=== PATIENT | female | born 1965 | race Caucasian/White ===

== ENCOUNTER 2022-10-11 02:29 | Day surgery (SDC) | payer OTHER, SELFPAY ==
[2022-10-04 15:52] VITALS: BMI 19.8
--- NOTE | 2022-10-04 16:02 | PC.NURSE ---
Report to the Outpatient Waiting Room, entrance under the green pavilion located off [facility], at time 1100 on date 10/11/22. Planned Procedure Time: 1300. Time changes happen often and if your time is changed the preop area will call you the afternoon before. - You and your visitor will be asked to self-screen and do not enter if you have any COVID symptoms. - A mask is optional within the hospital at this time. Patients may have clear liquids (water, carbonated beverages, clear teas, apple juice) until 3 hours prior to surgery with a maximum of 20 ounces. - No food from midnight until time of surgery Take the following medications with a SIP of water the morning of surgery: INHALERS, GABAPENTIN, PREDNISONE, PAIN PILL(S) IF NEEDED DO NOT STOP ANY OF YOUR OTHER PRESCRIPTION MEDICATIONS PRIOR TO SURGERY ?EXCEPT THE FOLLOWING Medications to discontinue per physician: VITAMINS/SUPPLEMENTS Date to take last dose: 10/07/[address] STARKEY REGARDING MELOXICAM Please no make-up, nail austrian, hairspray, perfume, deodorant, or body powder the day of surgery. No jewelry (including any body piercings) or valuables the day of surgery, leave them at home. Please take a shower or bath the night before, or the morning of, surgery with an antibacterial soap. Wear comfortable, loose fitting clothing. - Jewelry must be removed prior to entering the operating room. Rings and piercings that are not removed may be cut off. - The hospital will not accept responsibility for valuables. - Please leave all valuables, including medications, at home the day of surgery. If you are going home after surgery, a licensed cross country truck driver must drive you home. - NO public transportation without another adult if you receive anesthesia. - We recommend that an adult stay with you for 24 hours following discharge. - We also recommend that you do not drive, make important decision, drink alcoholic beverages, or take any drugs that were not prescribed by your health care provider for at least 24 hours after your discharge time. Follow any additional instructions given to you from your surgeon. If you or anyone in your household have experienced Covid symptoms in the past week, please notify your surgeon or the nurse liaison at the phone number below for possible testing. Telephone instructions given to PT - BRYAN VILLA and asked if any additional questions and then verbalized understanding. Patient advised to call surgeon office or pre surgery nurse liaison [phone] if any additional questions.
--- NOTE | 2022-10-10 14:17 | WPDANESEPPF ---
Anes - Initial Pre Proc Eval Procedure: Operation Date: 10/11/22 13:00 Proposed Procedures p Bilateral Breast Implant Exchange - Arsenio Keyes MD Date/Time: 10/10/22 14:17 Surgeon: Arsenio Keyes MD Pre Op Diagnosis: bilateral ruptured implants Patient Data Age: 57 Gender: F Height: 1.65 m Weight: 54 kg Allergies Allergy/AdvReac Type Severity Reaction Status Date / Time levofloxacin [From Levaquin] Allergy Anaphylaxis Verified 10/11/22 11:58 Sulfa (Sulfonamide Allergy Anaphylaxis Verified 10/11/22 11:58 Antibiotics) Home Medications Medication Instructions Recorded Confirmed Type albuterol sulfate 90 mcg/actuation 2 puff inhalation QID PRN 10/04/22 10/11/22 History aerosol inhaler Bronchospasm baclofen 10 mg tablet 10 mg PO QID PRN Muscle Spasm 10/04/22 10/11/22 History calcium carbonate 600 mg calcium 1,200 mg PO DAILY 10/04/22 10/11/22 History (1,500 mg) tablet (Calcium) cyanocobalamin (vitamin B-12) 1,000 mcg PO DAILY 10/04/22 10/11/22 History 1,000 mcg tablet ergocalciferol (vitamin D2) 1,250 1,250 mcg PO WEEKLY 10/04/22 10/11/22 History mcg (50,000 unit) capsule (Vitamin D2) fluticasone 100 mcg-salmeterol 50 1 inh inhalation Q12H 10/04/22 10/04/22 History mcg/dose blistr powdr for inhalation (Advair Diskus) gabapentin 400 mg capsule 1,200 mg PO TID 10/04/22 10/11/22 History hydrocodone 10 mg-acetaminophen 1 tablet PO Q6H PRN Pain 10/04/22 10/11/22 History 325 mg tablet lorazepam 0.5 mg tablet 0.5 mg PO DAILY PRN Anxiety 10/04/22 10/04/22 History meloxicam 15 mg tablet 15 mg PO DAILY 10/04/22 10/11/22 History nicotine 21 mg/24 hr daily 1 patch transdermal DAILY 10/04/22 10/11/22 History transdermal patch oxycodone 10 mg tablet,crush 10 mg PO HS 10/04/22 10/04/22 History resistant,extended release 12 hr (OxyContin) prednisone 10 mg tablet 10 mg PO DAILY 10/04/22 10/11/22 History Patient hx anesthesia problems: none Family hx anesthesia problems: none Results Review: All pre-operative results and documents have been reviewed as part of the pre-operative evaluation. [facility] Past Medical History Medical History (Updated 10/10/22 @ 14:18 by Tono Greer MD) Chronic narcotic use COPD (chronic obstructive pulmonary disease) Fusion of lumbar spine Rheumatoid arthritis Social History Social History Years smoked: 30 Smoking status: Current every day smoker Tobacco type: cigarettes Alcohol intake: never Substance use: current Substance use type: marijuana Living arrangements: with family Spiritual care concerns: No Anes - Eval Final PreProcedure Day of Procedure 10/10/22 14:17 Patient weight: normal Heart: regular rate and rhythm Lungs: clear to auscultation and normal air movement Airway: Mallampati scale class II Neurological: alert and oriented Last oral intake: >/= 8 hours ASA classification: III Emergent: no Anesthetic plan: proceed Anesthesia type and monitoring: general LMA Results Review: All pre-operative results and documents have been reviewed as part of the pre-operative evaluation. Informed Consent: The patient's anesthetic plan and its attendant risks and benefits were discussed with the patient/family/POA. Questions were solicited and answers provided to the satisfaction of the patient/family/POA.
[2022-10-11] VITALS (8 sets, daily range): BP systolic 116–132; BP diastolic 69–81; PULSE 74–88; RESP 14–18; TEMP 36.2–36.7; O2SAT 97–100
[2022-10-11] MEDS: LACTATED RINGERS 1,000 ML 30 ML IV CONT ×2 (11:53→15:43)
--- NOTE | 2022-10-11 13:36 | P.OP_ITS ---
Procedure Note - Detailed Date of Procedure 10/11/22 Pre-op Diagnosis bilateral ruptured implants Post-op Diagnosis Same Procedure Performed Bilateral implant exchange with Galaflex Surgeon Arsenio Keyes MD Anesthesia General Findings Bilateral rupture silicone implants New Implants: Bilateral Angela Araya SoftTouch 485cc Right - REF# [id number] SN [id number] Left - REF# [id number] SN [id number] Galaflex: REF# [id number] Exp 03/27/2024 Description of Procedure Preoperatively the risks, benefits, alternatives were discussed in extensive detail. I wanted to be very realistic about the risks involved as well as expectations. She understands she has significant deformity of breast especially right with implant projection below IMF and poorly defined IMF. She is planning on second stage mastopexy (at her expense). I was clear about how we could actually make her worse. Answered all questions to satisfaction. Voiced a clear understanding. Consent obtained. She was taken the operating room placed supine on the operating room table. Ane sthesia provided by anesthesiology and prepped and draped in a standard sterile fashion. Surgical time-out was taken. 1% lidocaine and 0.25% Marcaine with epinephrine was used to provide a field block. Tegaderm nipple posadas were placed. Fifteen blade used to excise the previous IMF scars. Dissection was continued down until the capsules were identified and excised a significant portion of the capsule which was sent to pathology. I then copiously irrigated with 3 L of saline solution on TUR tubing. Verified strict hemostasis. I then irrigated with Betadine containing solution. Using a no-touch technique and a Garrett funnel the implant was introduced into the pocket. Galaflex had been soaking in betadine solution. Trimmed and placed into the pocket. This was closed with 2-0 PDS followed by 3-0 Monocryl and a running subcuticular 4-0 Monocryl followed by tissue glue. Dressings were placed. She was woken taken to the PACU without difficulty. All instrument sponge counts were correct at the end of the case. Estimated Blood Loss 50 Drains No Packing No Pathology Yes (Bilateral capsules) Complications No immediate complications Condition Stable Disposition PACU
--- NOTE | 2022-10-11 13:36 | WPDHPUPDATE1 ---
History and Physical Update Update Date/Time: 10/11/22 13:36 History and Physical has been reviewed, including an updated exam of the patient. There are NO changes in the patient's condition. Risks, benefits, and alternatives have been discussed and questions answered. Patient agrees to proceed with procedure.
[2022-10-11] MEDS: ceFAZolin 2 GM/D5W 50 ML 2 GM/50 ML BAG IVPB (14:12)
[2022-10-11] MEDS: TRANEXAMIC ACID 1,000MG/ISO100 1,000 MG/100 ML BAG 200 MG IVPB (14:12)
[2022-10-11] MEDS: NACL 0.9% IRRIG POUR BOTTLE 900 ML, GENTAMICIN SULFATE INJ 160 MG, ceFAZolin 2 GM, POVI... IRRIGATION (14:37)
[2022-10-11] MEDS: LIDO 1%/EPINEPHRINE 1:100,000 20 ML VIAL 60 ML INFILTRATE (14:37)
[2022-10-11] MEDS: fentaNYL CITRATE INJ (*CRX) 100 MCG/2 ML VIAL 25 MCG IV PUSH ×8 (15:53→16:23)
[2022-10-11] MEDS: HYDROmorphone HCL INJ (*CRX) 1 MG/ML SYR 0.5 MG IV PUSH ×4 (16:27→16:45)
[2022-10-11] MEDS: oxyCODONE HCL (*CRX) 5 MG TAB IR PO (17:04)
== END 2022-10-11 17:35 | disposition home or self-care (01) ==
PROVIDERS: Visit Provider Surgery Plastic and Reconstructive Surgery
PROC: (CPT 19342; principal; 2022-10-11 13:00)
DX: T85.49XA Other mechanical complication of breast prosthesis and implant, initial encounter (principal); Y83.8 Other surgical procedures as the cause of abnormal reaction of the patient, or of later complication, without mention of misadventure at the time of the procedure; J44.9 Chronic obstructive pulmonary disease, unspecified; M06.9 Rheumatoid arthritis, unspecified; Z98.1 Arthrodesis status; F17.210 Nicotine dependence, cigarettes, uncomplicated; Z79.51 Long term (current) use of inhaled steroids; Z79.891 Long term (current) use of opiate analgesic
CPT/HCPCS: 19371; 19325; 15777 ×2; 88304; A9270; J0690; J1100; J1170; J1580; J2250; J2405; J2704; J3010; J7120

== ENCOUNTER 2023-06-18 08:10 | Day surgery (SDC) | payer OTHER, SELFPAY ==
--- NOTE | 2023-06-18 06:13 | P.OP_ITS ---
Procedure Note - Detailed Date of Procedure 06/18/23 Pre-op Diagnosis History of Breast Augmentation Post-op Diagnosis Same Procedure Performed Adjustment right IMF [facility] implant exchange Surgeon Arsenio Keyes MD Anesthesia General Indications Previous implant exchange the patient had a disruption of the right IMF. Postoperative she has developed recurrence of loss of right IMF definition / position. Findings Prvious implant intact. Replacement Implant: Angela Araya SoftTouch 485cc REF# [id number] Description of Procedure Preoperatively the risks, benefits, alternatives were discussed in extensive detail. I wanted to be very realistic about the risks involved as well as expectations. I was clear about how we could actually make her worse. She understands the complexity of IMF correction and risk this could reccur. Answered all questions to satisfaction. Voiced a clear understanding. Consent obtained. She was taken the operating room placed supine on the operating room table. Anesthesia provided by anesthesiology and prepped and draped in a standard sterile fashion. Surgical time-out was taken. 1% lidocaine and 0.25% Marcaine with epinephrine was used to provide a field block. Tegaderm nipple posadas were placed. Fifteen blade used to excise the previous right IMF scars. Dissection was continued down until the capsule was identified and entered. Implant removed. Superior capsulotomy was performed to remove back pressure. Inferior popcorn capsulorraphy was completed. I also secured this was a 2-0 Strattafix in multiple layers. I then copiously irrigated with saline solution on TUR tubing. Verified strict hemostasis. I then irrigated with Betadine containing solution. Using a no-touch technique and a Garrett funnel the implant was introduced into the pocket. I sat the patient the verify position of the implant. This was closed with 2-0 PDS followed by 3-0 Monocryl and a running subcuticular 4-0 Monocryl followed by tissue glue. Dressings were placed. She was woken taken to the PACU without difficulty. All instrument sponge counts were correct at the end of the case. Estimated Blood Loss 10 Drains No Packing No Pathology None sent Complications No immediate complications Condition Stable Disposition PACU
--- NOTE | 2023-06-18 08:05 | WPDANESEPPF ---
Anes - Initial Pre Proc Eval Procedure: Operation Date: 06/18/23 10:30 Proposed Procedures p Right Inframammary Fold Incision - Arsenio Keyes MD Date/Time: 06/18/23 08:05 Surgeon: Arsenio Keyes MD Pre Op Diagnosis: History of Breast Augmentation Patient Data Age: 58 Gender: F Height: 1.68 m Weight: 53.07 kg Allergies Allergy/AdvReac Type Severity Reaction Status Date / Time levofloxacin [From Levaquin] Allergy Anaphylaxis Verified 06/18/23 09:08 Sulfa (Sulfonamide Allergy Anaphylaxis Verified 06/18/23 09:08 Antibiotics) Home Medications Medication Instructions Recorded Confirmed Type albuterol sulfate 90 mcg/actuation 2 puff inhalation QID PRN 10/04/22 05/29/23 History aerosol inhaler Bronchospasm baclofen 10 mg tablet 10 mg PO QID PRN Muscle Spasm 10/04/22 06/18/23 History calcium carbonate 600 mg calcium 1,200 mg PO DAILY 10/04/22 05/29/23 History (1,500 mg) tablet (Calcium) cyanocobalamin (vitamin B-12) 1,000 mcg PO DAILY 10/04/22 05/29/23 History 1,000 mcg tablet ergocalciferol (vitamin D2) 1,250 1,250 mcg PO WEEKLY 10/04/22 05/29/23 History mcg (50,000 unit) capsule (Vitamin D2) fluticasone 100 mcg-salmeterol 50 1 inh inhalation Q12H 10/04/22 05/29/23 History mcg/dose blistr powdr for inhalation (Advair Diskus) gabapentin 400 mg capsule 1,200 mg PO TID 10/04/22 06/18/23 History hydrocodone 10 mg-acetaminophen 1 tablet PO Q6H PRN Pain 10/04/22 05/29/23 History 325 mg tablet lorazepam 0.5 mg tablet 0.5 mg PO DAILY PRN Anxiety 10/04/22 05/29/23 History meloxicam 15 mg tablet 15 mg PO DAILY 10/04/22 05/29/23 History nicotine 21 mg/24 hr daily 1 patch transdermal DAILY 10/04/22 05/29/23 History transdermal patch oxycodone 10 mg tablet,crush 10 mg PO HS 06/09/23 02/21/24 History resistant,extended release 12 hr (OxyContin) prednisone 10 mg tablet 10 mg PO DAILY 10/04/22 05/29/23 History Patient hx anesthesia problems: none Family hx anesthesia problems: none Results Review: All pre-operative results and documents have been reviewed as part of the pre-operative evaluation. [facility] Past Medical History Medical History (Updated 06/18/23 @ 08:06 by Brayden Luna DO) Chronic narcotic use 10 mg hydrodone- 4x day COPD (chronic obstructive pulmonary disease) Fusion of lumbar spine JOSE (obstructive sleep apnea) Rheumatoid arthritis Social History Social History Smoking packs per day: 1 Smoking cigarettes per day: 20.0 Years smoked: 30 Smoking pack-years: 30.00 Smoking status: Current every day smoker Tobacco type: cigarettes Alcohol intake: never Alcohol use details: 1 glass wine weekly Substance use: current Substance use type: marijuana Living arrangements: with family Spiritual care concerns: No Anes - Eval Final PreProcedure Day of Procedure 06/18/23 08:05 Patient weight: normal Heart: regular rate and rhythm Lungs: clear to auscultation Airway: Mallampati scale class II Neurological: alert and oriented Last oral intake: >/= 8 hours ASA classification: III Emergent: no Anesthetic plan: proceed Anesthesia type and monitoring: general LMA and standard monitoring Results Review: All pre-operative results and documents have been reviewed as part of the pre-operative evaluation. Informed Consent: The patient's anesthetic plan and its attendant risks and benefits were discussed with the patient/family/POA. Questions were solicited and answers provided to the satisfaction of the patient/family/POA.
[2023-06-18 09:11] VITALS: BP 99/67; PULSE 72; RESP 20; TEMP 37; O2SAT 98
[2023-06-18] MEDS: LACTATED RINGERS 1,000 ML 30 ML IV CONT ×2 (09:20→11:35)
--- NOTE | 2023-06-18 09:58 | SUR.PREOP ---
FEMALE STAFF IN ROOM WHILE DR STARKEY MARKED PT. PT'S DAUGHTER AT BEDSIDE
--- NOTE | 2023-06-18 10:05 | WPDHPUPDATE1 ---
History and Physical Update Update Date/Time: 06/18/23 10:05 History and Physical has been reviewed, including an updated exam of the patient. There are NO changes in the patient's condition. Risks, benefits, and alternatives have been discussed and questions answered. Patient agrees to proceed with procedure.
[2023-06-18] MEDS: ceFAZolin SODIUM 2 GM/20 ML SW SYRINGE IV PUSH (10:28)
[2023-06-18] MEDS: LIDO 1%/EPINEPHRINE 1:100,000 20 ML VIAL 15 ML INFILTRATE (10:36)
[2023-06-18] MEDS: NACL 0.9% IRRIG POUR BOTTLE 900 ML, GENTAMICIN SULFATE INJ 160 MG, ceFAZolin 2 GM, POVI... IRRIGATION (10:57)
[2023-06-18 11:35] VITALS: BP 127/74; PULSE 73; RESP 10; TEMP 36.1; O2SAT 100
[2023-06-18 11:46] VITALS: BP 112/72; PULSE 80; RESP 12; O2SAT 100
[2023-06-18] MEDS: ONDANSETRON INJ 4 MG/2 ML VIAL IV PUSH (11:59)
[2023-06-18 12:00] VITALS: BP 132/78; PULSE 71; RESP 10; O2SAT 98
[2023-06-18 12:11] VITALS: BP 125/80; PULSE 73; RESP 15; O2SAT 97
[2023-06-18 12:26] VITALS: BP 130/78; PULSE 75; RESP 16; O2SAT 98
[2023-06-18] MEDS: oxyCODONE HCL (*CRX) 5 MG TAB IR PO (12:44)
--- NOTE | 2023-06-18 13:19 | WPDANESPN ---
Anes - Prog Note Post-Op Date/Time: 06/18/23 13:19 Cardiovascular status: normal Respiratory status: normal Airway patency: baseline Mental status: baseline Post-Op hydration status: normal Vital Signs: Last Vital Signs Temp 36.1 C L 06/18/23 11:35 Pulse 75 06/18/23 12:26 Resp 16 06/18/23 12:26 BP 130/78 06/18/23 12:26 Pulse Ox 98 06/18/23 12:26 O2 Del Method Room Air 06/18/23 12:26 O2 Flow Rate 5 06/18/23 11:46 Pain Score (VAS): 2 I/O: Intake & Output 06/17/23 06/18/23 06/18/23 23:59 07:59 15:59 Intake Total 1600 Balance 1600 Post-procedural complaints: none Patient Feedback: Patient satisfied with anesthetic care. Other Findings: Patient vital signs back to baseline. Patient denies nausea and vomiting. Patient's pain under control. Patient OK for discharge.
== END 2023-06-18 13:00 | disposition home or self-care (01) ==
LOC: ASC 08:44
PROVIDERS: Visit Provider Surgery Plastic and Reconstructive Surgery
PROC: (CPT 19342; principal; 2023-06-18 10:30)
DX: Z41.1 Encounter for cosmetic surgery (principal)
CPT/HCPCS: 19342